=== PATIENT | female | born 1945 | race Caucasian/White ===

== ENCOUNTER → 2019-04-01 | Outpatient (CLI) | payer MEDICARE ==
[~2019-04-01] MED LIST: ALTACE10 MG PO; ASPIRIN325 PO; CALCIUM 500 +1 EAC5 PO; CLONIDINE0.1 PO; DILTIAZEM 24HR120 M2 PO; FISH OIL300 MG PO; KLOR-CON 1010 MEQ PO; LASIX 20 MG TAB20 MG PO; LEVAQUIN 500 M500 M2 PO; NEXIUM40 MG PO; NORVASC5 MG PO; PACERONE 200 M200 MG PO; SANTYL OINTMENT30 G1 TOP; TOPROL XL25 MG PO; XANAX 0.25 MG0.25 MG PO; XARELTO10 MG PO
--- NOTE | ~2019-04-01 | CARD ---
[address] [address] CARDIAC CATH REPORT Name: NOLAN MCLAUGHLIN Room: [facility].#: [id number] Admission: 04/01/19 Attend Phys: Dhiraj Barrera MD Discharge: Date of : 41 Report #: [id number] THIS REPORT FOR: //name// CC: Tony Barrera INDICATION: Atrial flutter. DESCRIPTION OF PROCEDURE: DC cardioversion. PROCEDURE DESCRIPTION: After informed consent was obtained, the patient was brought to the cardiac holding area. The patient was given intravenous Versed and fentanyl for conscious sedation. Once the patient was adequately sedated, she was cardioverted from atrial flutter to normal sinus rhythm with a single biphasic shock of 200 joules. The patient tolerated the procedure well and without complication. IMPRESSION: 1. Persistent atrial flutter. 2. Successful direct current cardioversion to normal sinus rhythm. By: 1247 [id number] Natalie Barrera MD, FACC /nt
[2019-04-01 13:22] VITALS: BP 129/87
[2019-04-01 13:51] LABS: HEMATOCRIT 38.2 % (37.0-47.0); HEMOGLOBIN 12.6 gm/dL (12.0-15.0); MCV 97.1 fL (80.0-100.0); MPV 7.4 fl. (7.2-11.1); RBC 3.94 mil/uL (4.20-5.00); RDW-CV 13.6 % (10.5-14.5); WBC 14.9 thou/uL (4.0-11.0)
[2019-04-01 13:56] VITALS: BP 116/73
[2019-04-01 13:57] LABS: CALCIUM 8.3 mg/dL (8.5-10.1); CREATININE 1.5 mg/dL (0.6-1.3); POTASSIUM 3.4 mmol/L (3.5-5.1)
[2019-04-01 13:59] VITALS: BP 116/73
[2019-04-01 14:00] VITALS: BP 116/73
[2019-04-01 14:07] VITALS: BP 129/72
--- NOTE | 2019-04-01 15:41 | EKG ---
[place] [address] ELECTROCARDIOGRAM REPORT Name: NOLAN MCLAUGHLIN Room: 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: [facility] : 1945 Requested By: Dhiraj Barrera Order Number: [id number] Reading MD: Garcia Dejesus Measurements Intervals [place] Rate: 106 P: 97 MN: 149 QRS: 82 QRSD: 98 T: 67 QT: 288 QTc: 383 Interpretive Statements 2:1 atrial tachycardia Borderline right axis deviation Compared to ECG 07/11/2016 15:42:36 Sinus rhythm no longer present Electronically Signed On 04-01-2019 15:41:25 CDT by Garcia Dejesus [email or web address] <ELECTRONICALLY SIGNED> By: Garcia Dejesus MD, [facility] 04/01/19 1541 1345 1345 Garcia Dejesus MD, FACC /EPI
== END | disposition home or self-care (01) ==
LOC: M.CL 12:00
PROVIDERS: Internal Medicine Cardiovascular Disease
DX: I48.92 Unspecified atrial flutter (principal); Z79.01 Long term (current) use of anticoagulants; Z88.2 Allergy status to sulfonamides; Z88.0 Allergy status to penicillin; Z79.899 Other long term (current) drug therapy; Z79.82 Long term (current) use of aspirin; Z90.49 Acquired absence of other specified parts of digestive tract; Z98.890 Other specified postprocedural states

== ENCOUNTER 2019-04-04 12:23 | Inpatient (IN) | payer MEDICARE ==
[~2019-04-04] VITALS: Ht 160 cm; Wt 38.6 kg
--- NOTE | ~2019-04-04 | PROC ---
[address] [address] PROCEDURE REPORT Name: NOLAN MCLAUGHLIN Room: [address] IN M.R.#: [id number] Admission: 04/04/19 Attend Phys: Cortes Florez Discharge: 04/16/19 Date of : 41 Report #: [id number] THIS REPORT FOR: //name// For GI report, please see the Provation report in Perceptive 7 content. By: 0702Medical Records Staff SEAN /YESSI
[~2019-04-04 12:23] MED LIST changes: -ALTACE10 MG PO; -CALCIUM 500 +1 EAC5 PO; +CALCIUM 600 +1 EA11 PO; -KLOR-CON 1010 MEQ PO; -LASIX 20 MG TAB20 MG PO; -LEVAQUIN 500 M500 M2 PO; +LISINOPRIL10 MG PO; -NEXIUM40 MG PO; -SANTYL OINTMENT30 G1 TOP
[2019-04-04 15:10] VITALS: BP 154/80
[2019-04-04] MEDS ORDERED: LASIX 20 MG TAB20 MG PO (15:40)
[2019-04-04] MEDS ORDERED: LEVAQUIN 500 M500 M2 PO (15:41)
[2019-04-04] MEDS ORDERED: KLOR-CON 1010 MEQ PO (15:52)
[2019-04-04] MEDS ORDERED: NEXIUM40 MG PO (15:53)
[2019-04-04 16:20] LABS: HEMATOCRIT 36.9 % (37.0-47.0); HEMOGLOBIN 12.3 gm/dL (12.0-15.0); MCH 31.7 pg (26.0-34.0); MCHC 33.2 g/dL (28.0-37.0); MCV 95.6 fL (80.0-100.0); MPV 7.3 fl. (7.2-11.1); RBC 3.86 mil/uL (4.20-5.00); RDW-CV 13.8 % (10.5-14.5); WBC 11.5 thou/uL (4.0-11.0)
[2019-04-04] MEDS ORDERED: SANTYL OINTMENT30 G1 TOP (16:33)
--- NOTE | 2019-04-04 16:34 | NUR ---
73 Y/O FEMALE, DIRECT ADMIT TO TELEMETRY FOR PNUEMONIA. TRACING SR WITH PAC'S. VSS. PT DENIES PAIN. PT IS DYSPENIC WITH EXERTION, CURRENTLY ON 2LPM AND DOES NOT WEAR O2 AT HOME. ASSESSMENT COMPLETED CHARTED. PT ORIENTED TO ROOM, VOICES UNDERSTANDING. CLWR.
[2019-04-04 16:42] LABS: CALCIUM 8.4 mg/dL (8.5-10.1); CREATININE 1.2 mg/dL (0.6-1.3); POTASSIUM 3.4 mmol/L (3.5-5.1); TOTAL BILIRUBIN 1.2 mg/dL (<0.1-1.0); TOTAL PROTEIN 6.5 g/dL (6.4-8.2)
[2019-04-05] VITALS: BP 125/86
[2019-04-05 04:00] VITALS: BP 130/58
--- NOTE | 2019-04-05 04:50 | NUR ---
ASSUMED PT CARE @ 193. PT A+O X4. PT DRANK ORAL CONTRAST AND WENT FOR ABD CT. WAS ABLE TO FALL ASLEEP AFTER RETURNING. PT UP WITH ASSIST. ABLE TO WALK TO BATHROOM WITHOUT SOA WITH O2 OFF. WEARS O2 WHILE IN BED. CALL LIGHT IN REACH. HOURLY ROUNDING FOR SAFETY.
[2019-04-05 04:53] LABS: ABSOLUTE LYMPHOCYTES 0.3 thou/uL (0.8-5.3); ABSOLUTE MONOCYTES 0.6 thou/uL (0.0-1.2); ABSOLUTE NEUTROPHILS 10.2 thou/uL (1.6-8.1); BASOPHILS 0.2 %; EOSINOPHILS 0.4 %; HEMATOCRIT 32.2 % (37.0-47.0); HEMOGLOBIN 10.7 gm/dL (12.0-15.0); LYMPHOCYTES 3.1 %; MCH 31.7 pg (26.0-34.0); MCHC 33.2 g/dL (28.0-37.0); MCV 95.6 fL (80.0-100.0); MONOCYTES 5.6 %; MPV 7.4 fl. (7.2-11.1); NUCLEATED RBCS 0 /100WBC; PLATELET COUNT* 414 thou/uL (150-400); POLYS 90.7 %; RBC 3.36 mil/uL (4.20-5.00); RDW-CV 13.7 % (10.5-14.5); WBC 11.3 thou/uL (4.0-11.0)
[2019-04-05 05:05] LABS: CALCIUM 7.5 mg/dL (8.5-10.1); CREATININE 1.1 mg/dL (0.6-1.3); POTASSIUM 3.1 mmol/L (3.5-5.1)
[2019-04-05 08:00] VITALS: BP 133/64
[2019-04-05 12:00] VITALS: BP 121/61
[2019-04-05 16:00] VITALS: BP 109/58
[2019-04-05 17:33] LABS: APTT 43.6 Seconds (25.0-31.3); INR 1.9; PROTIME 19.3 Seconds (9.20-11.50)
--- NOTE | 2019-04-05 18:20 | NUR ---
ASSUMED PT CARE AT 0730. A0X4, UP WITH ASSIST. PT WEAK. O2 SAT AT 90'S 2L NC. TRACING SR,PAC ON DECORATOR INSPECTOR. PT FOR THORACENTECIS TOMORROW. HOLD BLOOD THINNER PER PROTOCOL. PT LAST BM 04/03/19, ABDOMEN SOFT AND ROUND. VSS, AM ASSESSMENT CHARTED. MEDS GIVEN PER JAN. HOURLY ROUNDING. ALL NEEDS MET AT THIS TIME. WILL CONTINUE TO MONITOR.
[2019-04-05 20:39] VITALS: BP 134/62
[2019-04-06] VITALS: BP 135/60
[2019-04-06 04:00] VITALS: BP 152/68
[2019-04-06 04:53] LABS: ALBUMIN 1.7 g/dL (3.4-5.0); CALCIUM 7.9 mg/dL (8.5-10.1); CREATININE 1.3 mg/dL (0.6-1.3); POTASSIUM 4.3 mmol/L (3.5-5.1); TOTAL BILIRUBIN 0.9 mg/dL (<0.1-1.0); TOTAL PROTEIN 5.5 g/dL (6.4-8.2)
[2019-04-06 05:01] LABS: ABSOLUTE LYMPHOCYTES 0.4 thou/uL (0.8-5.3); MCV 95.6 fL (80.0-100.0); WBC 13.2 thou/uL (4.0-11.0)
[2019-04-06 05:06] LABS: ABSOLUTE EOSINOPHILS 0.1 thou/uL (0.0-0.7); ABSOLUTE MONOCYTES 0.6 thou/uL (0.0-1.2); BASOPHILS 0.3 %; EOSINOPHILS 0.4 %; HEMATOCRIT 34.1 % (37.0-47.0); HEMOGLOBIN 11.2 gm/dL (12.0-15.0); LYMPHOCYTES 3.4 %; MCH 31.4 pg (26.0-34.0); MCHC 32.9 g/dL (28.0-37.0); MONOCYTES 4.9 %; MPV 7.4 fl. (7.2-11.1); NUCLEATED RBCS 0 /100WBC; PLATELET COUNT* 416 thou/uL (150-400); RBC 3.57 mil/uL (4.20-5.00); RDW-CV 13.9 % (10.5-14.5)
[2019-04-06 08:00] VITALS: BP 151/83
[2019-04-06 08:02] LABS: INR 1.8; PROTIME 18.1 Seconds (9.20-11.50)
--- NOTE | 2019-04-06 08:08 | NUR ---
PT IS ABLE TO COMMUNICATE HER NEEDS TO STAFF EFFECTIVELY. SHE HAS DENIED THE NEED FOR PAIN MEDICATION UP TO THIS TIME. SHE HAS BEEN NPO SINCE MIDNIGHT FOR A LIKELY THORACENTESIS WITH IR LATER TODAY. BLOOD THINNER MEDS HELD OVERNIGHT.
--- NOTE | 2019-04-06 11:21 | NUR ---
MET WITH PT TO DISCUSS HOME SITUATION AND DC PLANNING. PT LIVES WITH SPOUSE. SHE STATES SHE IS VERY INDEPENDENT NORMALLY AND USES NO EQUIPMENT. PT PLANS TO RETURN HOME AT [place]. STATES IS FEELING 'CRUMMY' AT THIS TIME. DISCUSSED DPOA, PT DECLINED. ENCOURAGED HER TO DISCUSS HER WISHES WITH HER FAMILY SO THEY ARE AWARE OF HER WISHES. WILL FOLLOW
[2019-04-06 12:02] VITALS: BP 156/69
--- NOTE | 2019-04-06 12:37 | EKG ---
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: : 1945 Requested By: Lon Tang Order Number: [id number] MD: Adi Vargas Measurements Intervals [place] Rate: 63 P: 27 UT: 209 QRS: 27 QRSD: 98 T: 37 QT: 415 QTc: 425 Interpretive Statements Sinus rhythm Atrial premature complexes Borderline low voltage, extremity leads Compared to ECG 04/01/2019 13:45:36 Atrial premature complex(es) now present Electronically Signed On 04-06-2019 12:37:07 CDT by Adi Vargas [email or web address] <ELECTRONICALLY SIGNED> By: Adi Vargas MD, FACC 04/06/19 1237 1541 1541 Adi Vargas MD, [facility] /EPI
--- NOTE | 2019-04-06 15:22 | NUR ---
ASSUMED PT CARE. AOX4, UP WITH ASSIST. O2 SAT ON 90'S 6L NC. PT O2 MONITORED, TRACING SR, 1ST DEGREE AVB. PT FOR THORACENTECIS. PT LUNG SOUND COARSE/DIMINISHED. LAST BM ON 04/03/19, ABDOMEN SOFT AND ROUND. BOTTOM/COCCYX OPEN SORE, SKIN TEAR L ARM NOTED. VSS, AM ASSESSMENT CHARTED. MEDS GIVEN PER MAR. HOURLY ROUNDING. Q2 TURN. CALL LIGHT WITHIN REACH. WILL CONTINUE TO MONITOR.
[2019-04-06 15:53] VITALS: BP 144/67
--- NOTE | 2019-04-06 16:22 | NUR ---
WOUND NURSE: PATIENT SEEN TO ADDRESS MULTIPLE WOUNDS. RLE SKIN TEAR (1.4 X 7.0 X 0.1 CM); LUE SKIN TEAR (1.7 X 2.5 X 0.1 CM) -- BOTH PRESENT WITH RED, NONGRANULATING TISSUE IN THE WOUND BED AND MODERATE AMOUNT OF SEROUSANGUINOUS DRAINAGE. CLEANSED WITH WOUND CLEANSER AND GAUZE, APPLIED OPTIFOAM GENTLE AG AND WRAPPED WITH CONFORMING GAUZE. THEN SECURED WTH TAPE. LEFT LE ACHILLES LESION (1.0 X 0.8 X 0.1 CM) PRESENTS WITH PARTIALLY SCABBED AND RED, NONGRNAULATING TISSUE IN THE WOUND BED. CLEANSED WITH WOUND CLEANSER AND GAUZE, THEN APPLIED PURACHOL PLUS AG UNDER BORDERED FOAM DRESSING. SMALL STAGE 1 PU ON COCCYX (0.5 X 0.5 CM) TREATED WITH MOISTURE BARRIER CR AND PATIENT INSTRUCTED ON FREQUENT SIDE TO SIDE REPOSITIONING TO AVOID FURTHER BREAKDOWN. PATIENT STATED SHE UNDERSTOOD.
--- NOTE | 2019-04-06 19:40 | NUR ---
PT NPO MIGNIGHT FOR THORACENTECIS. PT BLOOD THINNER HOLD. PT O2 SAT MONITOR. PT ON 6L NC. IV ACCESS INTACT. BOTTOM OPEN SORE NOTED. GIVE REPORT TO NIGHT NURSE. Q2 TURN. WILL CONTINUE TO MONITOR.
[2019-04-06 20:32] VITALS: BP 123/60
[2019-04-07] VITALS: BP 151/60
--- NOTE | 2019-04-07 04:00 | NUR ---
PT BEGAN HAVING INCREASED SOA AND WAS DESATING; PUT ON NON-REBREATHER AND CALLED MD BUSINESS ENTERPRISE OFFICER. MD RETURNED CALL PROMPTLY AND GAVE ORDERS FOR CONT. BIPAP, MEDS, AND LABS; ORDERS ENTERED AND IMPLEMENTED. PT DOING MUCH BETTER AND BIPAP TOLERATED WELL.
[2019-04-07 04:02] VITALS: BP 157/78
[2019-04-07 05:49] LABS: HEMATOCRIT 33.4 % (37.0-47.0); HEMOGLOBIN 11.1 gm/dL (12.0-15.0); MCH 31.9 pg (26.0-34.0); MCHC 33.2 g/dL (28.0-37.0); MCV 96.1 fL (80.0-100.0); MPV 7.4 fl. (7.2-11.1); RBC 3.47 mil/uL (4.20-5.00); RDW-CV 13.9 % (10.5-14.5); WBC 13.4 thou/uL (4.0-11.0)
[2019-04-07 05:56] LABS: CALCIUM 7.9 mg/dL (8.5-10.1); CREATININE 1.2 mg/dL (0.6-1.3); MAGNESIUM 1.4 mg/dL (1.8-2.4); POTASSIUM 4.4 mmol/L (3.5-5.1)
[2019-04-07 06:16] LABS: APTT 30.1 Seconds (25.0-31.3); INR 1.3; PROTIME 12.3 Seconds (9.20-11.50)
[2019-04-07 07:30] VITALS: BP 131/68
--- NOTE | 2019-04-07 08:03 | NUR ---
PT IS ABLE TO COMMUNICATE HER NEEDS TO STAFF EFFECTIVELY. SHE HAS DENIED THE NEED FOR PAIN MEDS UP TO THIS TIME. PER PREVIOUS NOTE, PT NOW ON CONTINUOUS BIPAP AND TOLERATING WELL UP TO THIS TIME. SHE HAS BEEN NPO FOR A POSSIBLE RIGHT THORACENTESIS LATER TODAY. INR DOWN THIS AM FROM YESTERDAY.
--- NOTE | 2019-04-07 11:12 | CON ---
[address] [address] CONSULTATION Name: NOLAN MCLAUGHLIN Room: [address] ADM IN M.R.#: [id number] Admission: 04/04/19 Attend Phys: Cortes Florez Discharge: Date of : 43 Report #: [id number] THIS REPORT FOR: //name// CC: Tony Atkinson DATE OF SERVICE: 04/06/2019 REQUESTING PHYSICIAN: Lon Tang M.D. REASON FOR CONSULTATION: Pleural effusion. DISCUSSION: The patient is a very pleasant 73-year-old woman who is a lifelong nonsmoker. She presented to the hospital in [place] with progressive weakness. She notes over the last couple of weeks, she has been getting more short of breath and weaker. She is getting to the point she required assistance even getting in and out of bed. She has had some lower extremity edema. Over the last couple of weeks, she has also developed cough, typically they are nonproductive. She has lost weight. She believes she has lost 10-15 pounds over the last year, but her believes it is more. She has not had any actual chest pain. However, with the cough she does have some chest wall discomfort. She has not had any sputum production. She is not aware of any fevers at home. She has not had a good appetite. However, she denies any difficulty swallowing. No nausea, vomiting, no diarrhea. She has not had any hemoptysis or blood in her stools. She has no prior history of any known underlying malignancy. She notes she did have mammograms done within the last year, which were normal. Colonoscopy also within the last year or so, which was unremarkable. Past medical history is remarkable for atrial fibrillation. She continues to follow with the shopper here. She notes she was cardioverted this spring here at [place], so I do not have record on that. Unknown what any recent echocardiograms have shown as there are no records here at the hospital at [place]. She notes she was told that she may have had some blockages in one of her legs. She was seen over at this spring. From her description, it may have been arterial rather than venous. She denies any history of blood clots in her legs or in her lungs. PAST MEDICAL HISTORY: Besides as noted above for the atrial fibrillation and prior cardioversions, she also has a history of hypertension, anxiety. She has been on chronic anticoagulation therapy. She has also had a prior cholecystectomy, fractured wrist, hip surgery. HOME MEDICATIONS: Have been Xarelto, amiodarone, Altace, calcium with vitamin D, Lasix, recently was placed on levofloxacin, potassium, Nexium, aspirin and diltiazem. SOCIAL HISTORY: She is . 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 She is a lifelong nonsmoker. However, she does have exposure to secondhand smoke. Her just quit smoking several years ago. FAMILY HISTORY: Positive for heart disease. Negative for lung disease. REVIEW OF SYSTEMS: ROS was done. Note positives above. Getting progressively weaker. Denies any palpitations or syncopal episodes. She is starting to have skin breakdown as well. She has not been moving much. Denies abdominal pain. She has not noted any blood in her stools, hemoptysis nor had any hematemesis. PHYSICAL EXAMINATION: GENERAL APPEARANCE: This is a woman who looks chronically ill, quite cachectic. She looks quite thin and has obvious muscle wasting. She has O2 running via nasal cannula. She has a frequent nonproductive cough during the interview. HEENT: Head is normocephalic. Sclerae nonicteric. Mucous membranes are moist. No definite cervical or supraclavicular adenopathy is noted. Neck muscles, well developed. Neck veins little prominent. She does not have any dilated veins over her anterior chest. HEART: Regular with occasional extrasystole. No S3 is heard. LUNGS: Sounds overall are diminished, particularly diminished lower half on the right side. There is some dullness to percussion. Decreased tactile fremitus. No wheezing or crackles are heard. She does begin coughing with deep inspiration. ABDOMEN: Slightly protuberant. She does have some dilated vessels noted. Does note some discomfort with palpation in the right upper quadrant. No guarding or rebound. No inguinal adenopathy. EXTREMITIES: Thin with muscle wasting. SKIN: Warm and dry. NEUROLOGIC: She is alert and oriented x 3. Moving all extremities. She is extremely weak. She had trouble staying in a sitting position even with assistance from me for the physical exam. LABORATORY AND X-RAY FINDINGS: Films were reviewed. CT scan done of her chest, does reveal a large right pleural effusion. With this, there is some associated infiltrates noted. No definite masses are noted. Does have some mild pleural thickening noted on the left side. No definite adenopathy is noted (noncontrast study). CT scan was also done of her abdomen and pelvis. Also shows the pleural effusion noted on the right. Liver size was normal. Difficult to visualize the pancreas since no contrast was given. Was noted to have mild inflammatory stranding throughout the mesentery with small amount of ascitic fluid noted. Slight malrotation of the right kidney. It does appear she had a chest film on 04/01/2019. This may have been when she had a cardioversion done. She did have evidence of a right pleural effusion on that study. On her chemistry, her BUN is 19, creatinine of 1.3, bicarbonate is 32, potassium 4.3. AST 62, total bilirubin was 1.2, dropped to 0.9. Calcium 7.9, alkaline phosphatase on admission 245, down to 224. Total protein only 5.5 [place] [address] CONSULTATION Name: NOLAN MCLAUGHLIN Room: [address] IN [facility]#: [id number] Admission: 04/04/19 Attend Phys: Cortes Florez Discharge: Date of : 43 Report #: [id number] of 1.7. Lactic acid 1.1. ProBNP just over 2800. INR was 1.8 this morning. White blood cell count this morning 13,200, hemoglobin 11.2, hematocrit 34.1, platelets 416,000. Prealbumin only 12.2. CRP 154. Blood cultures were sent. IMPRESSION: 1. Right pleural effusion, duration unknown. It was present on studies done on 04/01/2019. It could be parapneumonic. Clinically, doubt empyema, but is not ruled out. Given her weight loss and increasing weakness, more concerned she could have a malignant process. Though she is a lifelong nonsmoker, she does have secondhand smoke exposure. By history, has had unremarkable mammograms and colonoscopy within the last year. 2. Weight loss with associated severe protein-calorie malnutrition. Very low Prealbumin and albumin. 3. Elevated liver function tests. Exact etiology not clear. 4. Mild anemia. 5. Atrial fibrillation, has been on chronic anticoagulation therapy. 6. Possible peripheral vascular disease. She was evaluated in clinic recently at . However, no stenting, etc. was done. RECOMMENDATIONS: 1. Agree with proceeding with ultrasound-guided thoracentesis when able. 2. May need additional evaluation. Ultrasound of liver and pancreas given the abnormalities of her LFTs. 3. I will also check echocardiogram. 4. In the interim, we will try some Tussionex scheduled with shannon Welsh to see if it would help her cough. <ELECTRONICALLY SIGNED> By: Shannon Lovell MD 04/07/19 1112 1106 [id number] Lovell MD /nt
[2019-04-07 12:00] VITALS: BP 118/57
--- NOTE | 2019-04-07 12:29 | 2DMMODE ---
[place] [address] 2 D/M-MODE ECHOCARDIOGRAM Name: NOLAN MCLAUGHLIN Room: [address] ADM IN [facility]#: [id number] Admission: 04/04/19 Attend Phys: Sunday Atkinson Discharge: Date of : 41 Date of Service: 04/07/19 1229 Report #: [id number] THIS REPORT FOR: //name// APPROVED REPORT Study performed: 04/07/2019 10:55:23 EXAM: Limited 2D, Doppler, and color-flow Echocardiogram Patient Location: In-Patient Room #: [facility] Status: routine BSA: 1.37 HR: 80 bpm BP: 131/68 mmHg Rhythm: NSR Other Information Study Quality: Good Indications Dyspnea Peripheral Edema Pleural Effusion Volumes Left Atrial Volume (Systole) LA ESV Index: 44.00 mL/m2 Tricuspid Valve RAP Estimate: 5.00 mmHg TR Peak Gr.: 29.71 mmHg RVSP: 34.00 mmHg PA Pressure: 34.00 mmHg Left Ventricle The left ventricle is normal size. There is normal left ventricular wall thickness. The left ventricular systolic function is normal. LVEF is 55-60%. Right Ventricle The right ventricle is normal size. The right ventricular systolic function is normal. Atria Left atrium is moderately dilated. Right atrium is mildly dilated. [facility] [address] [place] [address] 2 D/M-MODE ECHOCARDIOGRAM Name: NOLAN MCLAUGHLIN Room: [address] IN M.R.#: [id number] Admission: 04/04/19 Attend Phys: Sunday Atkinson Discharge: Date of : 41 Date of Service: 04/07/19 1229 Report #: [id number] Aortic Valve Mild aortic valve sclerosis. Mitral Valve The mitral valve is normal in structure. Tricuspid Valve The tricuspid valve is normal in structure. Moderate tricuspid regurgitation. The RVSP is 30-35 mmHg. Pulmonic Valve The pulmonary valve is normal in structure. Great Vessels The aortic root is normal in size. IVC is not well visualized. Pericardium Mild pericardial effusion. No echo indications of pericardial tamponade. Left pleural effusion. <Conclusion> The left ventricle is normal size. There is normal left ventricular wall thickness. The left ventricular systolic function is normal. LVEF is 55-60%. Left atrium is moderately dilated. Right atrium is mildly dilated. Mild aortic valve sclerosis. Moderate tricuspid regurgitation. The RVSP is 30-35 mmHg. Mild pericardial effusion. No echo indications of pericardial tamponade. Left pleural effusion. <ELECTRONICALLY SIGNED> By: Dhiraj Barrera MD, FACC 04/07/19 1229 1229 1229 Dhiraj Barrera MD, FACC /INF
[2019-04-07 14:50] LABS: BF RBC 24760 /mm3; CLARITY TURBID; SOURCE THORACENTESIS; TOTAL VOLUME 1900 ml
[2019-04-07 14:51] LABS: TOTAL CELL COUNT 997 /mm3
[2019-04-07 16:00] VITALS: BP 94/45
[2019-04-07 16:26] LABS: BF LYMPHOCYTES 9 %; BF MONOCYTES 9 %; BF POLYS 82 %; BF TISSUE 4 /100 WBC
[2019-04-07 20:00] VITALS: BP 109/76; BP 139/60
--- NOTE | 2019-04-07 20:21 | NUR ---
ASSUMED PT CARE AT 0730. PT O2 SAT AT 90'S ON A BIPAP. TRACING SR ON ASSAYER. LAST BM 04/04/19. ABDOMEN SOFT AND ROUND.PT LUNG SOUND COARSE/DIMINISHED. PT HAD CHEST XRAY, THORACENTESIS TODAY. PT PO INTAKE POOR. OPEN SORE ON THE COCCYX AREA NOTED. VSS, ASSESSMENT CHARTED MEDS GIVEN PER JAN. Q2 TURN. HOURLY ROUNDING. GIVE REPORT TO NIGHT NURSE. WILL CONTINUE TO MONITOR.
[2019-04-08] VITALS: BP 101/47
[2019-04-08 04:00] VITALS: BP 121/49
--- NOTE | 2019-04-08 07:20 | NUR ---
CHANGE OF SHIFT, BEDSIDE REPORT GIVEN PATIENT SEEN AT BEDSIDE, IN BED ASLEEP ASSUMED PATIENT CARE
[2019-04-08 08:00] VITALS: BP 123/57
[2019-04-08 11:09] LABS: BODY FLUID AMYLASE 37 U/L (()); BODY FLUID LDH 194 IU/L (())
[2019-04-08 11:51] VITALS: BP 113/51
[2019-04-08 12:05] LABS: BODY FLUID PH 7.8 (Not Estab.)
[2019-04-08 15:32] VITALS: BP 119/45
--- NOTE | 2019-04-08 15:32 | NUR ---
CONTINUE TO FOLLOW, DR PARIKH REC: SNF FOR PT. MET WITH PT TO DISCUSS, SHE WAS OPEN TO THAT IDEA. PT LIVES IN [place], [place] AND WOULD PREFER TO BE CLOSE TO HOME. PRINTED LIST OF SNFS IN HER AREA AND DISCUSSED WITH PT AND SPOUSE. SPOUSE'S MOTHER LIVES AT [facility], PT NOT SURE SHE WANTS TO GO THERE. EXPLAINED AGAIN WHAT SNF WAS AND WHAT TYPE OF FACILITIES THEY ARE IN. SHE AND SPOUSE PLAN TO DISCUSS AND WILL F/U IN AM WITH HER RE: DECISION.
[2019-04-08 20:00] VITALS: BP 124/58
[2019-04-09] VITALS: BP 109/41
[2019-04-09 04:00] VITALS: BP 115/36
--- NOTE | 2019-04-09 08:45 | NUR ---
REC'D REPORT FROM NOC RN, ASSUMED CARE OF PATIENT APPROX 0730. OX4, ABLE TO COMMUNICATE NEEDS TO STAFF. ASSESSMENT COMPLETE, VS OBTAINED. 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 O2 SATS 96% ON 2L O2. ASSIST OF 1 WITH TRANSFERS AND AMBULATION. PATIENT WEAKNESS INCREASES RISK FOR FALLS. CALL LIGHT IN REACH.
--- NOTE | 2019-04-09 09:15 | NUR ---
REC'D REPORT FROM NOC RN, ASSUMED CARE OF PATIENT APPROX 0730. A&OX4, ABLE TO COMMUNICATE NEEDS TO STAFF. ASSESSMENT COMPLETE, VS OBTAINED. LURE MAKER IN PLACE, SR. O2 SATS 92% 3L. DRSG ON R NECK HAS SEROUS DRNG. IR CALLED TO ASSESS BLEEDING. PRESSURE APPLIED DIRECTED. IR PHYSICIAN PLAN IS TO SUTURE THE AREA. IR TECH PRESENT IN ROOM WITH PATIENT. CALL LIGHT IN REACH.
[2019-04-09 09:20] VITALS: BP 102/49
[2019-04-09 11:51] VITALS: BP 90/47
--- NOTE | 2019-04-09 12:22 | NUR ---
CONTINUE TO FOLLOW, MET WITH PT. SHE STATED SHE SPOKE WITH DTR AND HAS DECIDED ON [facility] IN [place]. CALLED AND LEFT VMAIL FOR ADMISSIONS, FAXED REFERRAL ALSO. AWAIT CALL BACK. PER DR PARIKH, MAY BE READY ON SAT FOR DC TO SNF. [facility] [phone] FAX [phone]
--- NOTE | 2019-04-09 13:29 | NUR ---
MACHINE TAPER CALLED TO INFORM THAT PATIENT HAS COMPLETED DIALYSIS. PATIENT RETURNED TO ROOM VIA HOSPITAL BED AND NURSING STAFF. PATIENT HAD BEEN OFF UNIT FOR DIALYSIS SINCE 999. PER REPORT, TOOK 2L OFF IN DIALYSIS AND BLOOD PRESSURES WERE IN THE 130'S/140'S.
[2019-04-09 13:32] LABS: % SATURATION 18 % (20-39); IRON 17 ug/dL (50-175)
[2019-04-09 16:44] VITALS: BP 127/56
[2019-04-09 20:15] VITALS: BP 133/55
[2019-04-10] VITALS: BP 130/71
[2019-04-10 04:54] LABS: HEMATOCRIT 31.1 % (37.0-47.0); HEMOGLOBIN 10.6 gm/dL (12.0-15.0); MCH 32.6 pg (26.0-34.0); MCHC 34.1 g/dL (28.0-37.0); MCV 95.6 fL (80.0-100.0); MPV 7.8 fl. (7.2-11.1); RBC 3.25 mil/uL (4.20-5.00); RDW-CV 14.2 % (10.5-14.5); WBC 14.1 thou/uL (4.0-11.0)
[2019-04-10 04:56] VITALS: BP 122/49
[2019-04-10 05:14] LABS: ALBUMIN 1.5 g/dL (3.4-5.0); CALCIUM 7.8 mg/dL (8.5-10.1); CREATININE 1.9 mg/dL (0.6-1.3); MAGNESIUM 1.9 mg/dL (1.8-2.4); POTASSIUM 4.1 mmol/L (3.5-5.1); TOTAL BILIRUBIN 1.3 mg/dL (<0.1-1.0); TOTAL PROTEIN 5.1 g/dL (6.4-8.2)
--- NOTE | 2019-04-10 07:00 | NUR ---
PT IS ABLE TO COMMUNICATE HER NEEDS TO STAFF EFFECTIVELY. SHE HAS DENIED THE NEED FOR PAIN MEDICATION UP TO THIS TIME. SHE HAS BEEN NPO SINCE MIDNIGHT FOR A POSSIBLE EGD LATER TODAY. SHE STILL REPORTS HAVING A VERY POOR APPETITE.
--- NOTE | 2019-04-10 08:00 | NUR ---
REC'D REPORT FROM NOC RN, ASSUMED CARE OF PATIENT APPROX 0730. OX4, ABLE TO COMMUNICATE NEEDS TO STAFF. ASSESSMENT COMPLETE, VS OBTAINED. CLIENT RELATIONS REPRESENTATIVE IN PLACE, SR, 1ST DEGREE AV BLOCK. O2 SAT 95% 2L. PATIENT C/O NAUSEA, PRN MED GIVEN PER JAN. NPO FOR EGD TODAY. PATIENT AGREEABLE TO PLAN OF CARE. CALL LIGHT WITHIN REACH.
[2019-04-10 08:50] VITALS: BP 119/59
[2019-04-10 09:56] LABS: SOURCE THORACENTESIS
[2019-04-10 09:57] LABS: SOURCE THORACENTESIS
--- NOTE | 2019-04-10 11:19 | NUR ---
CONTINUE TO FOLLOW, DISCUSSED WITH DR PARIKH. POSSIBLE W/E DC. UPDATED [facility]. THEY ARE ABLE TO ACCEPT PT OVER THE WEEKEND [facility] [phone] FAX [phone]
--- NOTE | 2019-04-10 12:10 | NUR ---
CONTINUE TO FOLLOW, POSSIBLE W/E DC. SPOKE WITH DTYina/GALLITO, SHE STATED THAT FAMILY TOURED [facility] AND DO WANT PT TO GO THERE, ASKED ABOUT A PRIVATE ROOM. PER SELMA/[employer] [facility], THEY CAN ACCEPT PT OVER THE WEEKEND. [facility] [phone] FAX [phone]
--- NOTE | 2019-04-10 13:07 | PATH ---
[address] [address] PATHOLOGY RPT PROCEDURE Name: NOLAN MCLAUGHLIN Room: [address] IN [facility]#: [id number] Admission: 04/04/19 Date of : 41 Discharge: Report #: [id number] Path Case #: [id number] Note [facility] Accession Number: [id number] TESTS RESULT FLAG UNITS REF RANGE LAB Clinician Provided Cytology Information No. of containers..01 Other (Miscellaneous) Source: 01 PLEURAL FLUID Clinician ICD10: 01 J69.0 J96.01 DIAGNOSIS: 02 PLEURAL FLUID NEGATIVE FOR MALIGNANT CELLS. REACTIVE MESOTHELIAL CELLS AND RBCS. THIS INTERPRETATION INCLUDES EVALUATION OF A CELL BLOCK. Signed out by: 02 Fortino Jane MD, Pathologist NPI- [id number] Performed by: 01 Gunjan Arroyo, Kier Boiler ([facility]) Gross description: 01 80ML, ORANGE RED, CLOUDY /LCS FLAG LEGEND: L-Low Normal,H-High Normal,LL-Alert Low,HH-Alert High <-Panic Low,>-Panic High,A-Abnormal,AA-Critical Abnormal Performed at: [address] [place] [address] Gilberto Vieyra MD, [address] [place] [address].[place] [address] Fortino Jane MD, Specimen Comment: A courtesy copy of this report has been sent to Specimen Comment: [phone], , . Specimen Comment: Report sent to ,DR SEGURA / DR OATES Specimen Comment: A duplicate report has been generated due to demographic updates. Performed at: [address], [place], [place] [id number] MD Gilberto Vieyra MD Phone: [phone]
[2019-04-10 16:00] VITALS: BP 131/59
[2019-04-10 17:07] LABS: HEPATITIS B SURFACE AG Negative (Negative)
[2019-04-10 20:10] VITALS: BP 90/56
[2019-04-11] VITALS: BP 120/66
[2019-04-11 04:00] VITALS: BP 148/65
--- NOTE | 2019-04-11 07:53 | NUR ---
PT CARE ASSUMED AT 1930. SAT MAINTAINED IN MN. ALERT AND ORIENTED X4. CALL LIGHT WITHIN REACH AND BED IN LOW POSITION. DENIES PAIN AND SOB. HOURLY ROUNDING DONE FOR PT SAFETY.
[2019-04-11 07:58] VITALS: BP 112/53
--- NOTE | 2019-04-11 08:42 | NUR ---
ASSUMED CARE OF PT AT 0730. PT RESTING IN BED. PT DENIES ANY PAIN OR SHORTNESS OF BREATH AT THIS TIME. PT TRACING SR WITH FIRST DEGREE ON THE COLLEGE COACH. ON 2L NC SAT 94%. PT UP WITH 1 ASSIST AND WALKER TO BATHROOM. PT GOAL FOR TODAY IS INCREASE APPETITE, DISCHARGE PLANNING TO SNF AND HAVE A BOWEL MOVEMENT. AM ASSESSMENT CHARTED. MEDICATIONS PER JAN. PT REPOSITIONED EVERY 2 HOURS FOR COMFORT. HOURLY ROUNDING OBSERVED. BED IN LOW POSITION. BED ALARM IN PLACE. FALL PRECAUTIONS IN PLACE. CALL LIGHT WITHIN REACH. WILL CONTINUE PLAN OF CARE.
[2019-04-11 11:30] VITALS: BP 109/48
[2019-04-11 15:54] VITALS: BP 116/52
--- NOTE | 2019-04-11 16:55 | NUR ---
NO ACUTE CHANGES THROUGHOUT SHIFT. REFER TO CHARTING. PT SLOWLY PROGRESSING TOWARDS GOALS. PT UP TO CHAIR TODAY FOR MEALS, TOLERATED WELL. FAMILY AT BEDSIDE THIS AFTERNOON. PT CONTINUES TO TRACE SR WITH DEGREE ON THE BELTING INSPECTOR. ON 2L NC SAT 92%, UNABLE TO TITRATE OXYGEN. PT UP WITH 1 ASSIST AND WALKER TO BATHROOM. DR PARIKH HERE TO SEE PT TODAY. ORDERS RECEIVED FOR IR CONSULT FOR RECURRENT RIGHT PLEURAL EFFUSION. MEDICATIONS PER JAN. PT REPOSITIONED EVERY 2 HOURS FOR COMFORT. HOURLY ROUNDING OBSERVED. BED IN LOW POSITION. BED ALARM IN PLACE. FALL PRECAUTIONS IN PLACE. CALL LIGHT WITHIN REACH. WILL CONTINUE PLAN OF CARE.
[2019-04-11 19:40] VITALS: BP 120/48
[2019-04-12] VITALS: BP 126/60
[2019-04-12 04:00] VITALS: BP 143/61
--- NOTE | 2019-04-12 04:51 | NUR ---
PT CARE ASSUMED AT 1930. SAT MAINTAINED IN MS. ALERT AND ORIENTED X4. CALL LIGHT WITHIN REACH AND BED IN LOW POSITION. DENIES PAIN AND SOB. HOURLY ROUNDING DONE FOR PT SAFETY.
[2019-04-12 07:53] VITALS: BP 107/52
--- NOTE | 2019-04-12 09:39 | NUR ---
ASSUMED CARE OF PT AT 0730. PT RESTING IN BED WAITING FOR BREAKFAST. PT A&0X4, DENIES ANY PAIN OR SHORTNESS OF BREATH AT THIS TIME, PT TRACING SR ON THE BRICK PICKER. PT ON 2L NC SAT 93%. PT UP WITH 1 ASSIST AND WALKER TO BATHROOM. PT GOAL FOR TODAY IS INCREASE ACTIVITY, UP TO CHAIR FOR MEALS, TITRATE OXYGEN AND BOWELS TO MOVE. AM ASSESSMENT CHARTED. MEDICATIONS PER MAR. PT REPOSITIONED EVERY 2 HOURS FOR COMFORT. HOURLY ROUNDING OBSERVED. BED IN LOW POSITION. BED ALARM IN PLACE. FALL PRECAUTIONS IN PLACE. CALL LIGHT WITHIN REACH. WILL CONTINUE PLAN OF CARE.
[2019-04-12 11:28] VITALS: BP 109/48
[2019-04-12 15:52] VITALS: BP 101/49
--- NOTE | 2019-04-12 18:20 | NUR ---
NO ACUTE CHANGES THROUGHOUT SHIFT. REFER TO CHARTING. PT NOT PROGRESSING TOWARDS GOALS. UP TO CHAIR FOR MEALS, TOLERATED FAIR. UNABLE TO TITRATE OXYGEN. PT CONTINUES TO BE ON 2L NC SAT UPPER 90'S. CONTINUES TO TRACE SR WITH FIRST DEGREE ON THE MORTAR MIXER. PT UP WITH 1 ASSIST AND WALKER TO BATHROOM. WOUND CARE GIVEN TO RLE AND RUE. MEDICATIONS PER JAN. PT REPOSITIONED EVERY 2 HOURS FOR COMFORT. HOURLY ROUNDING OBSERVED. BED IN LOW POSITION. BED ALARM IN PLACE. FALL PRECAUTIONS IN PLACE. CALL LIGHT WITHIN REACH. WILL CONTINUE PLAN OF CARE.
[2019-04-12 20:00] VITALS: BP 125/56
[2019-04-13] VITALS (7 sets, daily range): BP systolic 82–130; BP diastolic 41–61
--- NOTE | 2019-04-13 11:12 | NUR ---
ASSUMED CARE OF PT AT 0730. PT RESTING IN BED. PT A&0X4, DENIES ANY PAIN OR SHORTNESS OF BREATH AT THIS TIME. PT TRACING SR WITH PACS ON THE FACTORY LABORER. ON 2L NC SAT UPPER 90'S. BLOOD PRESSURE SOFT AT 80'S/40'S. AM MEDICATIONS HELD FOR NOW. WILL MONITOR CLOSELY. DR PARIKH NOTIFIED. ORDERS RECEIVED FOR IVF- NS AT 75 ML/HR, REFER TO EMAR. PT UP WITH 1 ASSIST AND WALKER TO BATHROOM. PT GOAL FOR TODAY IS IVF, MAINTAIN SBP ABOVE 100, INCREASE ACTIVITY AND TITRATE OXYGEN. AM ASSESSMENT CHARTED, MEDICATIONS PER JAN. PT REPOSITIONED EVERY 2 HOURS FOR COMFORT. HOURLY ROUNDING OBSERVED. BED IN LOW POSITION. BED ALARM IN PLACE. FALL PRECAUTIONS IN PLACE. CALL LIGHT WITHIN REACH. WILL CONTINUE PLAN OF CARE.
--- NOTE | 2019-04-13 18:41 | NUR ---
NO ACUTE CHANGES THROUGHOUT SHIFT. REFER TO CHARTING. AM BLOOD PRESSURE MEDICATIONS HELD- BLOOD PRESSURE IMPROVING THROUGHOUT SHIFT AND WITH IVF. FAMILY AT BEDSIDE THROUGHOUT SHIFT AND UPDATED ON CURRENT PLAN OF CARE. PROBABLE THORACENTESIS TOMORROW 04/14. PT DENIES ANY PAIN OR SHORTNESS OF BREATH THROUGHOUT THE AFTERNOON. CONTINUES TO TRACE SR WITH OCCASIONAL PACS ON THE SOCIAL PROFESSIONALS. ON 2L NC SAT UPPER 90'S. PT UP WITH 1 ASSIST AND WALKER TO BATHROOM. MEDICATIONS PER JAN. PT REPOSITIONED EVERY 2 HOURS FOR COMFORT. HOURLY ROUNDING OBSERVED. BED IN LOW POSITION. BED ALARM IN PLACE. FALL PRECAUTIONS IN PLACE. CALL LIGHT WITHIN REACH, WILL CONTINUE PLAN OF CARE.
[2019-04-14] VITALS (7 sets, daily range): BP systolic 101–132; BP diastolic 39–60
--- NOTE | 2019-04-14 05:31 | NUR ---
ASSUMED PATIENT CARE AT 1900. PATEINT ALERT AND ORIENTED TIMES FOUR. NO COMPLAINTS OF PAIN OR DISCOMFORT NOTED. REMAINS ON O2 VIA NC AT 2L. RN ASESSMENT AND HOURLY ROUNDING COMPLETED CHARTED.
--- NOTE | 2019-04-14 09:45 | NUR ---
WELL TENDER ATTEMPTED TO CALL AND UPDATE SELMA WITH ADMISSIONS AT [facility], BUT HAD TO LEAVE A VOICEMAIL TO RETURN CALL. IT IS UNCLEAR AT THIS TIME IF THE PATIENT WILL BE READY TO D/C TODAY. THE PHYSICAN IN-CHARGE OF THE PATIENT HAS NOT ROUNDED. CM WILL REMAIN AVAILABLE TO ASSIST AND FOLLOW NEEDED.
[2019-04-14 13:08] LABS: BF RBC 3955 /mm3; TOTAL CELL COUNT 414 /mm3
[2019-04-14 13:10] LABS: CLARITY SLIGHTLY HAZY; TOTAL VOLUME 1260 ml
[2019-04-14 13:13] LABS: BF LYMPHOCYTES 11 %; BF MONOCYTES 33 %; BF POLYS 56 %; BF TISSUE 1 /100 WBC; SOURCE THORACENTESIS
--- NOTE | 2019-04-14 17:29 | NUR ---
ASSUMED CARE OF PT AROUND 0730 THIS AM. REFER TO ASSESSMENT. PT HAD THORACENTESIS COMPLETED WITH 1350 ML FLUID REMOVED. RE-EVAL WITH CHEST XRAY IN AM. POSSIBLE DC TO SNF TOMORROW. NO OTHER CONCERNS AT THIS TIME. CLWR. WCTM.
[2019-04-15] VITALS: BP 122/52
[2019-04-15 04:00] VITALS: BP 117/48
--- NOTE | 2019-04-15 05:28 | NUR ---
ASSUMED PATIENT CARE AT 1900. PATIENT ALERT AND ORIENTED TIMES FOUR. NO COMPLAINTS OF PAIN OR DISCOMFORT NOTED. RN ASSESMENT AND HOURLY ROUNDING COMPLTED DOCUMENTED.
[2019-04-15 08:05] VITALS: BP 152/67
[2019-04-15 12:06] VITALS: BP 94/42
[2019-04-15 15:47] VITALS: BP 102/44
[2019-04-15 15:58] LABS: BODY FLUID AMYLASE 23 U/L (()); BODY FLUID LDH 204 IU/L (()); BODY FLUID PROTEIN 2.5 g/dL (())
--- NOTE | 2019-04-15 17:31 | NUR ---
PATIENT RESTING UP IN CHAIR. PATIENT IS UP WITH ASSIST. PATIENT DENIES ANY PAIN. PATIENT WORKED WITH PHYSICAL THERPAY THIS EVENING. PATIENT HAS POOR APPETITE, ENSURE SUPPLEMENTS GIVEN. PATIENT DENIES ANY NEEDS AT THIS TIME. CALL LIGHT WITHIN REACH. WILL CONTINUE TO MONITOR.
[2019-04-15 20:00] VITALS: BP 124/50
[2019-04-16] VITALS: BP 144/51
--- NOTE | 2019-04-16 01:51 | NUR ---
PT SLEEPY AROUSES EASILY. TURNING Q 2 HRS. NS @ 75MLS/HR. O2 AT 2 LITERS NC. NONPRODUCTIVE COUGH. TAKING SCHEDULED TESSALON PERELS AND LIQUID HYDROCODONE/CHLORPHENIRAMINE FOR COUGH. TELEMETRY SHOWS SR.
[2019-04-16 04:00] VITALS: BP 120/52
[2019-04-16 07:45] VITALS: BP 117/51
[2019-04-16] MEDS ORDERED: SALINE NASAL14.1 GM NASAL (11:25)
[2019-04-16 11:30] VITALS: BP 127/56
[2019-04-16] MEDS ORDERED: COLACE100 MG PO (11:34)
[2019-04-16] MEDS ORDERED: IPRAT-ALBUT 0.5-3 ML INH (11:39)
[2019-04-16] MEDS ORDERED: MIRALAX17 GM PO (11:40)
[2019-04-16] MEDS ORDERED: MUCINEX600 MG PO (11:42)
[2019-04-16] MEDS ORDERED: TESSALON PERLE100 MG PO (11:43)
--- NOTE | 2019-04-16 11:43 | CON ---
[address] [address] CONSULTATION Name: NOLAN MCLAUGHLIN Room: [address] ADM IN M.R.#: [id number] Admission: 04/04/19 Attend Phys: Cortes Florez Discharge: Date of : 41 Report #: [id number] THIS REPORT FOR: //name// CC: Tony Atkinson DICTATED BY: Tina Ledesma [facility] DATE OF SERVICE: 04/09/2019 PRIMARY CARE PHYSICIAN: Tony Mclain MD. Please note, at the time of this dictation, the patient was seen and physically examined by myself. HISTORY OF PRESENT ILLNESS: This is a 73-year-old female who initially presented to [facility] with progressive weakness, which she had noted over the last couple of weeks and was getting more and more short of breath. She had also noted a weight loss of probably 10-15 pounds over the last year. She has denied any complaints of any dysphagia except for when she has to swallow very large pills. She denies any issues with her bowels or any abdominal pain. She states her bowels move depending on what she eats either from daily to every 3-4 days. She did undergo a colonoscopy last fall, which she states was completely unremarkable at [place] and we will obtain those records for our review. She has never had an upper scope done that she recalls. Also, noting on her CT showed some dilatation in the proximal esophagus with possible wall thickening in the distal esophagus, also noted some high density areas in the liver, questionable from possible iron overload. ALLERGIES: PENICILLIN AND SULFA. MEDICATIONS: From home include Xarelto, amiodarone, Altace, calcium with vitamin D, Lasix, Nexium, aspirin, diltiazem and potassium. PAST MEDICAL HISTORY: Atrial fibrillation, history of hypertension and anxiety. PAST SURGICAL HISTORY: Hip surgery, fractured wrist and prior cholecystectomy. She recently underwent a thoracentesis yesterday. FAMILY HISTORY: Negative for any GI or female cancers. SOCIAL HISTORY: Denies any alcohol, tobacco or illegal drug use, [place] [address] CONSULTATION Name: NOLAN MCLAUGHLIN Room: [address] IN [facility]#: [id number] Admission: 04/04/19 Attend Phys: Cortes Florez Discharge: Date of : 41 Report #: [id number] REVIEW OF SYSTEMS: Twelve-point review of systems is essentially negative except what is mentioned in the HPI. PHYSICAL EXAMINATION: VITAL SIGNS: Temperature 36.9, pulse 73, respirations 19, blood pressure 102/49. HEART: Regular rate and rhythm. LUNGS: Diminished, especially on the right. ABDOMEN: Soft, positive bowel sounds in all 4 quadrants with no masses or tenderness noted. LABORATORY DATA: Hemoglobin 11.1, white count is 13.4, platelets 376. PT 12.3 and INR 1.3, total bilirubin is 0.9, alkaline phosphatase 224. ALT 74, AST is 62. GFR is 44. CT of the abdomen and pelvis with dilatation of the proximal esophagus with possible wall thickening in the mid esophagus and high density appearance in the liver, questionable iron overload. IMPRESSION: 1. Weight loss. 2. Abnormal CT noted in the esophagus and liver. 3. Leukocytosis. 4. Pleural effusion, improving. 5. Anticoagulant therapy, Xarelto for atrial fibrillation currently on hold. 6. Elevated LFTs. PLAN: 1. EGD tomorrow and have obtained okay from Pulmonary to proceed. 2. Labs: GGTP, ferritin, iron studies and acute hepatitis panel. 3. Obtain records from [facility] on her colonoscopy done last fall. 4. Further recommendations to be made once the procedure has been performed. Thank you for allowing us to participate in this patient's care. Please do not hesitate to call with any questions in regard to this consult. ADDENDUM REFERRING PHYSICIAN: Dr. Sunday Atkinson I have seen and examined the patient and agree with plan that has been outlined by our nurse practitioner, Tina Ledesma. I have also reviewed her CT scan as well, which is suggestive of distal esophageal thickening with possible poor emptying. Despite these findings, she denies any complaints referable to her upper or lower GI tract, hepatobiliary or pancreatic systems. She has lost about 10-15 pounds over the last several months, which is close to 20% of her body weight and she is certainly emaciated and frail[place] [address] CONSULTATION Name: NOLAN MCLAUGHLIN Room: [address] IN [facility].#: [id number] Admission: 04/04/19 Attend Phys: Cortes Florez Discharge: Date of : 41 Report #: [id number] findings with the patient as well as her son-in-law and explained how we do the upper endoscopy. I told him that Dr. Izquierdo will be doing the test tomorrow morning. We talked with him, and with the patient and family after the procedure. The patient and family are agreeable to the plans. <ELECTRONICALLY SIGNED> By: Nehemiah Lau DO 04/16/19 1143 [id number] 0004Nehemiah Lau DO /nt
[2019-04-16] MEDS ORDERED: TUSSIONEX PENN115 ML PO (11:44)
[2019-04-16] MEDS ORDERED: TYLENOL325 MG PO (11:45)
[2019-04-16 11:46] VITALS: BP 117/51
--- NOTE | 2019-04-16 12:05 | PATH ---
[address] [address] PATHOLOGY RPT PROCEDURE Name: NOLAN PAINTING Room: [address] IN .R.#: [id number] Admission: 04/04/19 Date of : 41 Discharge: Report #: [id number] Path Case #: [id number] [facility] Accession Number: [id number] . 01 Material submitted: . PART A: stomach - CRYSTAL PYLORIC POLYP LOOKING LESION PART B: stomach - BIOPSIES FOR GASTRITIS . 01 Clinical history: . None provided . 02 Diagnosis: A. Crystal pyloric polyp looking lesion: - Mild chronic antral gastritis with polypoid foveolar hyperplasia, typical of reactive gastropathy (chemical gastritis), negative for granulomas and dysplasia / adenomatous change. . B. Biopsies for gastritis: - Moderate chronic and active gastritis with erosion and prominent foveolar hyperplasia, typical of reactive gastropathy (chemical gastritis), and with prominent superficial vascular ectasia, negative for granulomas, H. pylori organisms and dysplasia. . (SHANIKA:mml; 04/15/2019) QLM/04/15/2019 . 02 Comment: Special stain (B): H. pylori immuno. . (SHANIKA:mml; 04/15/2019) . 02 Electronically signed: . Fortino Jane MD, Pathologist NPI- [id number] . 01 Gross description: . A. Received in formalin labeled "GarimaMyranday, crystal pyloric polyp looking lesion," are 2 segments of long soft tissue measuring 0.7 x 0.2 x 0.2 cm in aggregate dimensions and ranging from 0.3 to 0.4 cm in maximum dimension. The specimen is submitted entirely in cassette A1. . B. Received in formalin labeled "Nolan Painting, biopsies for gastritis," are 3 segments of long soft tissue measuring 1.0 x 1.0 x 0.2 cm in aggregate dimensions and ranging from 0.3 to 0.4 cm in maximum dimension. The specimen is submitted entirely in cassette B1. (TSD; 04/10/2019) TOB/TOB . [address] [place] [address] PATHOLOGY RPT PROCEDURE Name: NOLAN PAINTING JAYCE Room: [address] IN ..#: [id number] Admission: 04/04/19 Date of : 41 Discharge: Report #: [id number] Path Case #: [id number] Pathologist provided ICD-10: K29.50, K25.9 . 02 CPT . 490263, 476325, O51491 Specimen Comment: A courtesy copy of this report has been sent to Specimen Comment: [phone], , . Specimen Comment: Report sent to DR SEGURA / DR OATES Specimen Comment: Report sent to DR HANDLEY,DR SEGURA / DR OATES Specimen Comment: A duplicate report has been generated due to demographic updates. Performed at: [address], [place] [id number] MD Gilberto Vieyra MD Phone: [phone] Performed at: [facility] [address], [place], [place] [id number] MD Fortino Jane MD Phone: [phone]
--- NOTE | 2019-04-16 12:09 | NUR ---
ORDERS RECEIVED FOR DC TO SNF. CALLED AND FAXED ORDERS, WOUND CARE AND ORDERS TO [facility], THEY WILL ACCEPT TODAY. SET UP W/C VAN [facility] FOR [phone]. CHART COPIED AND RN HAS NUMBER TO CALL REPORT. PT IN AGREEMENT WITH PLAN. CALLED AND UPDATED PT'S DTR/GALLITO ALSO.
[2019-04-16 12:34] VITALS: BP 127/56
--- NOTE | 2019-04-16 13:40 | NUR ---
PATIENT DISCHARGED TO [facility]. REPORT CALLED. COPY OF DICHARGE PAPERS AND CHART GIVEN TO TRANSPORTER. WOUND DRESSINGS CHANGED AND PICTURES PLACED IN CHART. PATIENT ASSISTED WITH PACKING BELONGINGS AND GETTING DRESSED. HOME MEDICATIONS RETURNED. IV REMOVED. PATIENT DENIES ANY FURTHER NEEDS. PATIENT LEFT BY WHEELCHAIR VAN AT THIS TIME.
[2019-04-16 16:07] LABS: BODY FLUID PH 7.6 (Not Estab.)
--- NOTE | 2019-04-17 11:07 | PATH ---
[address] [address] PATHOLOGY RPT PROCEDURE Name: NOLAN MCLAUGHLIN Room: [address] IN [facility]#: [id number] Admission: 04/04/19 Date of : 41 Discharge: 04/16/19 Report #: [id number] Path Case #: [id number] Note [facility] Accession Number: [id number] TESTS RESULT FLAG UNITS REF RANGE LAB Clinician Provided Cytology Information No. of containers..01 Other (Miscellaneous) Source: PLEURAL DIAGNOSIS: 02 PLEURAL NEGATIVE FOR MALIGNANT CELLS. SCANT CELLULARITY, WITH FEW MESOTHELIAL CELLS AND INFLAMMATORY CELLS. THIS INTERPRETATION INCLUDES EVALUATION OF A CELL BLOCK. Signed out by: 02 Fortino Jane MD, Pathologist NPI- [id number] Performed by: Jourdan Arroyo, Geoscience Professor ([facility]) Gross description: 01 33ML, DARK YELLOW, CLOUDY /LCS FLAG LEGEND: L-Low Normal,H-High Normal,LL-Alert Low,HH-Alert High <-Panic Low,>-Panic High,A-Abnormal,AA-Critical Abnormal Performed at: [address] [place] [address] Gilberto Vieyra MD, [address] [address] Fortino Jane MD, Specimen Comment: A courtesy copy of this report has been sent to Specimen Comment: [phone], , . Specimen Comment: Report sent to DR PARIKH,DR SEGURA / DR OATES Performed at: [address], [place], [place] [id number] MD Gilberto Vieyra MD Phone: [phone]
[2019-04-19 17:22] LABS: SOURCE THORACENTESIS
== END 2019-04-16 13:44 | DRG 177 ==
LOC: M.TBA 12:23 → M.2W 15:08
PROVIDERS: Internal Medicine; Nurse Practitioner Adult Health; ADMIT Internal Medicine
DX: J69.0 Pneumonitis due to inhalation of food and vomit (principal); J96.01 Acute respiratory failure with hypoxia; E43 Unspecified severe protein-calorie malnutrition; J91.8 Pleural effusion in other conditions classified elsewhere; Z68.1 Body mass index [BMI] 19.9 or less, adult; K29.70 Gastritis, unspecified, without bleeding; I48.91 Unspecified atrial fibrillation; I10 Essential (primary) hypertension; F41.9 Anxiety disorder, unspecified; D64.9 Anemia, unspecified; D72.829 Elevated white blood cell count, unspecified; R62.7 Adult failure to thrive; K44.9 Diaphragmatic hernia without obstruction or gangrene; K31.7 Polyp of stomach and duodenum; K22.4 Dyskinesia of esophagus; Z79.01 Long term (current) use of anticoagulants; Z90.49 Acquired absence of other specified parts of digestive tract; Z87.81 Personal history of (healed) traumatic fracture; Z82.49 Family history of ischemic heart disease and other diseases of the circulatory system; Z88.0 Allergy status to penicillin; Z88.2 Allergy status to sulfonamides